=== PATIENT | female | born 1945 | race Caucasian/White ===

== ENCOUNTER 2020-09-10 21:55 | Inpatient (IN) | payer OTHER ==
[~2020-09-10] VITALS: Ht 170.2 cm; Wt 82.8 kg
[2020-09-10 21:59] VITALS: BP 158/79
[2020-09-10] MEDS ORDERED: LISINOPRIL10 MG PO (22:03)
[2020-09-11] VITALS (53 sets, daily range): BP systolic 77–153; BP diastolic 35–98
[2020-09-11 01:33] LABS: BE -0.5 mmol/L (-2 to +3); PCO2 45.3 mmHg (35.0-45.0); pH 7.364 (7.340-7.450)
[2020-09-11 01:35] LABS: PO2 128.4 mmHg (75.0-100.0)
[2020-09-11 01:50] LABS: HEMOGLOBIN 13.7 gm/dL (12.0-15.0); MCH 29.2 pg (26.0-34.0); MCHC 32.6 g/dL (28.0-37.0); MCV 89.5 fL (80.0-100.0); MPV 7.8 fl. (7.2-11.1); NUCLEATED RBCS 0 /100WBC; PLATELET COUNT* 310 thou/uL (150-400); RBC 4.69 mil/uL (4.20-5.00); WBC 10.6 thou/uL (4.0-11.0)
[2020-09-11 01:51] LABS: CREATININE 0.8 mg/dL (0.6-1.3); MAGNESIUM 2.5 mg/dL (1.8-2.4); POTASSIUM 3.6 mmol/L (3.5-5.1)
[2020-09-11 02:48] LABS: ABSOLUTE LYMPHOCYTES 1.4 thou/uL (0.8-5.3); ABSOLUTE MONOCYTES 0.1 thou/uL (0.0-1.2); ABSOLUTE NEUTROPHILS 9.1 thou/uL (1.6-8.1)
[2020-09-11 02:49] LABS: PLATELET ESTIMATE ADEQUATE
--- NOTE | 2020-09-11 12:16 | EKG ---
[place] [address] ELECTROCARDIOGRAM REPORT Name: DAWSONBRENNA Devi Room: [address] ADM IN M.R.#: [id number] Admission: 09/11/20 Attend Phys: Orlando Francis, Discharge: Date of : 47 Date of Service: 09/10/20 2329 Report #: [id number] THIS REPORT FOR: //name// [facility] ED Test Date: 2020-09-10 Test Time: 23:29:25 Pat Name: BRENNA OSMAN Department: Room: [address] Gender: F Junior Administrative Assistant: CCD : 1945 Requested By: Richa Smith Order Number: [id number] Liam MD: Yordan Waller Measurements Intervals [place] Rate: 100 P: 32 AK: 179 QRS: 27 QRSD: 98 T: -10 QT: 387 QTc: 500 Interpretive Statements Sinus tachycardia Borderline T abnormalities, inferior leads Borderline prolonged QT interval Baseline wander in lead(s) V6 No previous ECG available for comparison Electronically Signed On 09-11-2020 12:16:33 CDT by Yordan Waller [email or web address] <ELECTRONICALLY SIGNED> By: Yordan Waller MD, FAC 09/11/20 1216 2329 2329 Yordan Waller MD, [facility] /EPI
[2020-09-12] VITALS (26 sets, daily range): BP systolic 100–158; BP diastolic 74–109
[2020-09-12 03:11] LABS: ABSOLUTE LYMPHOCYTES 0.9 thou/uL (0.8-5.3); ABSOLUTE MONOCYTES 0.3 thou/uL (0.0-1.2); ABSOLUTE NEUTROPHILS 11.2 thou/uL (1.6-8.1); BASOPHILS 0.2 %; HEMATOCRIT 41.3 % (37.0-47.0); HEMOGLOBIN 13.4 gm/dL (12.0-15.0); LYMPHOCYTES 7.6 %; MCH 28.8 pg (26.0-34.0); MCHC 32.5 g/dL (28.0-37.0); MCV 88.7 fL (80.0-100.0); MONOCYTES 2.1 %; MPV 8.2 fl. (7.2-11.1); NUCLEATED RBCS 0 /100WBC; PLATELET COUNT* 273 thou/uL (150-400); POLYS 90.1 %; RBC 4.66 mil/uL (4.20-5.00); RDW-CV 14.2 % (10.5-14.5); WBC 12.4 thou/uL (4.0-11.0)
[2020-09-12 03:23] LABS: ALBUMIN 3.2 g/dL (3.4-5.0); CALCIUM 8.7 mg/dL (8.5-10.1); CREATININE 0.7 mg/dL (0.6-1.3); MAGNESIUM 2.1 mg/dL (1.8-2.4); PHOSPHORUS* 3.1 mg/dL (2.5-4.9); POTASSIUM 4.1 mmol/L (3.5-5.1); TOTAL BILIRUBIN 0.2 mg/dL (<0.1-1.0); TOTAL PROTEIN 6.9 g/dL (6.4-8.2)
[2020-09-12 13:00] LABS: BE -3.8 mmol/L (-2 to +3); PCO2 39.4 mmHg (35.0-45.0); pH 7.353 (7.340-7.450)
[2020-09-12 13:02] LABS: PO2 131.1 mmHg (75.0-100.0)
--- NOTE | 2020-09-12 14:32 | 2DMMODE ---
[place] [address] 2 D/M-MODE ECHOCARDIOGRAM Name: BRENNA OSMAN Room: [address] IN .R.#: [id number] Admission: 09/11/20 Attend Phys: Orlando Francis, Discharge: Date of : 47 Date of Service: 09/12/20 1431 Report #: [id number] THIS REPORT FOR: cc: Tyree Saldana MD, Tuongvan T. MD Holkins, John M. MD [facility] ~ APPROVED REPORT Study performed: 09/11/2020 14:55:09 EXAM: Comprehensive 2D, Doppler, and color-flow Echocardiogram Patient Location: In-Patient Room #: 003 Status: routine BSA: 1.88 HR: 83 bpm BP: 99/54 mmHg Rhythm: NSR Other Information Study Quality: Good Indications Dyspnea Echo Enhancing Agent Indication: Rule out Shunt Agent(s) / Amount(s) Used: Agitated Saline 10 cc 2D Dimensions IVSd: 10.26 (7-11mm) LVOT Diam: 19.42 (18-24mm) LVDd: 39.53 mm PWd: 8.59 (7-11mm) Ascending Ao: 27.44 (22-36mm) LVDs: 19.23 (25-40mm) Aortic Root: 30.93 mm Volumes Left Atrial Volume (Systole) LA ESV Index: 18.70 mL/m2 Aortic Valve AoV Peak Nain.: 1.52 m/s AO Peak Gr.: 9.19 mmHg LVOT Max P.07 mmHg AO Mean Gr.: 4.98 mmHg LVOT [place]74 [place] [address] 2 D/M-MODE ECHOCARDIOGRAM Name: DAWSONBRENNA Marito Room: [address] IN .R.#: [id number] Admission: 09/11/20 Attend Phys: Orlando Francis, Discharge: Date of : 47 Date of Service: 09/12/20 1431 Report #: [id number] LVOT Max V: 1.23 m/s AO V2 VTI: 30.52 cm LVOT Mean V: 0.75 m/s SANDOR (VTI): 2.45 cm2 LVOT V1 VTI: 25.28 cm Mitral Valve E/A Ratio: 0.64 MV Decel. Time: 227.91 ms MV E Max Nain.: 0.66 m/s MV PHT: 66.09 ms MVA (PHT): 3.33 cm2 TDI E/Lateral E': 7.33 E/Medial E': 8.25 Medial E' Nain.: 0.08 m/s Lateral E' Nain.: 0.09 m/s Pulmonary Valve PV Peak Nain.: 0.95 m/s PV Peak Gr.: 3.61 mmHg Left Ventricle The left ventricle is normal size. There is normal LV segmental wall motion. There is normal left ventricular wall thickness. Left ventricular systolic function is normal. The left ventricular ejection fraction is within the normal range. LVEF is 65-70%. Grade I - abnormal relaxation pattern. Right Ventricle The right ventricle is normal size. The right ventricular systolic function is normal. Atria The left atrium size is normal. The interatrial septum is intact with no evidence for an atrial septal defect. The right atrium size is normal. Aortic Valve The aortic valve is normal in structure. No aortic regurgitation is present. There is no aortic valvular stenosis. Mitral Valve The mitral valve is normal in structure. Trace mitral regurgitation. No evidence of mitral valve stenosis. Tricuspid Valve The tricuspid valve is normal in structure. [place] [address] 2 D/M-MODE ECHOCARDIOGRAM Name: BRENNA OSMAN Room: [address] IN [facility]#: [id number] Admission: 09/11/20 Attend Phys: Orlando Francis, Discharge: Date of : 47 Date of Service: 09/12/20 1431 Report #: [id number] Pulmonic Valve The pulmonary valve is normal in structure. There is no pulmonic valvular regurgitation. Great Vessels The aortic root is normal in size. IVC is normal in size and collapses >50% with inspiration. Pericardium There is no pericardial effusion. <Conclusion> The left ventricle is normal size. There is normal left ventricular wall thickness. Left ventricular systolic function is normal. The left ventricular ejection fraction is within the normal range. LVEF is 65-70%. Grade I - abnormal relaxation pattern. The right ventricle is normal size. The left atrium size is normal. The aortic valve is normal in structure. The mitral valve is normal in structure. The tricuspid valve is normal in structure. IVC is normal in size and collapses >50% with inspiration. There is no pericardial effusion. There is normal LV segmental wall motion. The interatrial septum is intact with no evidence for an atrial septal defect. <ELECTRONICALLY SIGNED> By: Yordan Waller MD, FACC 09/12/20 1431 1431 1431 Yordan Waller MD, FACC /INF
[2020-09-12] MEDS ORDERED: NORVASC5 MG (19:13)
[2020-09-12] MEDS ORDERED: OMEPRAZOLE 20 M20 M1 PO (19:15)
[2020-09-12] MEDS ORDERED: CELEXA 10 MG TA10 M1 (19:16)
[2020-09-12] MEDS ORDERED: DULOXETINE HCL60 MG (19:18)
[2020-09-12] MEDS ORDERED: ALENDRONATE SOD70 MG ×2 (19:24→19:25)
[2020-09-13] VITALS (69 sets, daily range): BP systolic 121–156; BP diastolic 68–102
[2020-09-13 03:19] LABS: ABSOLUTE LYMPHOCYTES 0.9 thou/uL (0.8-5.3); ABSOLUTE MONOCYTES 0.5 thou/uL (0.0-1.2); ABSOLUTE NEUTROPHILS 11.8 thou/uL (1.6-8.1); BASOPHILS 0.2 %; HEMATOCRIT 43.1 % (37.0-47.0); HEMOGLOBIN 13.9 gm/dL (12.0-15.0); LYMPHOCYTES 6.5 %; MCH 28.9 pg (26.0-34.0); MCHC 32.4 g/dL (28.0-37.0); MCV 89.2 fL (80.0-100.0); MONOCYTES 3.8 %; MPV 8.2 fl. (7.2-11.1); NUCLEATED RBCS 0 /100WBC; PLATELET COUNT* 284 thou/uL (150-400); POLYS 89.5 %; RBC 4.83 mil/uL (4.20-5.00); RDW-CV 14.2 % (10.5-14.5); WBC 13.2 thou/uL (4.0-11.0)
[2020-09-13 04:44] LABS: CALCIUM 7.4 mg/dL (8.5-10.1); CREATININE 0.5 mg/dL (0.6-1.3); MAGNESIUM 2.2 mg/dL (1.8-2.4); PHOSPHORUS* 2.3 mg/dL (2.5-4.9); TOTAL BILIRUBIN 0.3 mg/dL (<0.1-1.0); TOTAL PROTEIN 6.1 g/dL (6.4-8.2)
[2020-09-14] VITALS (70 sets, daily range): BP systolic 76–147; BP diastolic 41–100
[2020-09-14 04:00] LABS: HEMATOCRIT 43.5 % (37.0-47.0); HEMOGLOBIN 14.3 gm/dL (12.0-15.0); MCH 28.8 pg (26.0-34.0); MCHC 32.7 g/dL (28.0-37.0); MCV 87.9 fL (80.0-100.0); MPV 8.5 fl. (7.2-11.1); NUCLEATED RBCS 0 /100WBC; PLATELET COUNT* 275 thou/uL (150-400); RBC 4.96 mil/uL (4.20-5.00); WBC 10.4 thou/uL (4.0-11.0)
[2020-09-14 04:31] LABS: ALBUMIN 2.7 g/dL (3.4-5.0); CALCIUM 7.5 mg/dL (8.5-10.1); CREATININE 0.6 mg/dL (0.6-1.3); MAGNESIUM 2.2 mg/dL (1.8-2.4); POTASSIUM 3.5 mmol/L (3.5-5.1); TOTAL BILIRUBIN 0.3 mg/dL (<0.1-1.0); TOTAL PROTEIN 5.4 g/dL (6.4-8.2)
[2020-09-14 04:55] LABS: APTT 28.9 Seconds (25.0-31.3)
[2020-09-14 06:55] LABS: ABSOLUTE LYMPHOCYTES 0.5 thou/uL (0.8-5.3); ABSOLUTE MONOCYTES 0.3 thou/uL (0.0-1.2); ABSOLUTE NEUTROPHILS 9.6 thou/uL (1.6-8.1); PLATELET ESTIMATE ADEQUATE
[2020-09-14 08:31] LABS: BE 1.7 mmol/L (-2 to +3); PCO2 34.9 mmHg (35.0-45.0); PO2 67.8 mmHg (75.0-100.0)
[2020-09-15] VITALS (46 sets, daily range): BP systolic 88–161; BP diastolic 53–97
[2020-09-15 02:26] LABS: HEMATOCRIT 41.5 % (37.0-47.0); HEMOGLOBIN 13.4 gm/dL (12.0-15.0); MCH 28.8 pg (26.0-34.0); MCHC 32.2 g/dL (28.0-37.0); MCV 89.4 fL (80.0-100.0); MPV 8.2 fl. (7.2-11.1); RBC 4.64 mil/uL (4.20-5.00); RDW-CV 13.9 % (10.5-14.5); WBC 10.5 thou/uL (4.0-11.0)
[2020-09-15 02:42] LABS: ALBUMIN 2.5 g/dL (3.4-5.0); CALCIUM 7.5 mg/dL (8.5-10.1); CREATININE 0.8 mg/dL (0.6-1.3); MAGNESIUM 2.6 mg/dL (1.8-2.4); POTASSIUM 3.6 mmol/L (3.5-5.1); TOTAL BILIRUBIN 0.4 mg/dL (<0.1-1.0); TOTAL PROTEIN 5.6 g/dL (6.4-8.2)
--- NOTE | 2020-09-15 10:32 | EKG ---
[place] [address] ELECTROCARDIOGRAM REPORT Name: DAWSONBRENNA Room: [address] ADM IN M.R.#: [id number] Admission: 09/11/20 Attend Phys: Orlando Francis, Discharge: Date of : 47 Date of Service: 09/12/20 0844 Report #: [id number] THIS REPORT FOR: //name// [facility] Test Date: 2020-09-12 Test Time: 08:44:59 Pat Name: BRENNA OSMAN Department: Room: [address] Gender: F Multifocal Button Generator: Jd Avina : 1945 Requested By: Mili Cuevas Order Number: [id number] Reading MD: Daniel Mckinney Measurements Intervals [place] Rate: 101 P: [place]: QRS: 44 QRSD: 89 T: 14 QT: 368 QTc: 477 Interpretive Statements Atrial fibrillation Consider anterior infarct Baseline wander in lead(s) V2 Compared to ECG 09/10/2020 23:29:25 Myocardial infarct finding now present Sinus tachycardia no longer present Electronically Signed On 09-15-2020 10:32:27 CDT by Daniel Mckinnye [email or web address] <ELECTRONICALLY SIGNED> By: Daniel Mckinney MD, FAC 09/15/20 1032 0844 0844 Daniel Mckinney MD, FAC /EPI
--- NOTE | 2020-09-15 10:50 | EKG ---
[place] [address] ELECTROCARDIOGRAM REPORT Name: BRENNA OSMAN Room: [address] ADM IN .R.#: [id number] Admission: 09/11/20 Attend Phys: Orlando Francis, Discharge: Date of : 47 Date of Service: 09/13/20 0144 Report #: [id number] THIS REPORT FOR: //name// [facility] Test Date: 2020-09-13 Test Time: 01:44:50 Pat Name: BRENNA OSMAN Department: Room: [address] Gender: F Microbiology Supervisor: MS : 1945 Requested By: Mili Cuevas Order Number: [id number] Liam MD: Daniel Mciknney Measurements Intervals [place] Rate: 84 P: [place]: QRS: 48 QRSD: 89 T: 17 QT: 394 QTc: 466 Interpretive Statements Atrial fibrillation Compared to ECG 09/12/2020 08:44:59 no change Electronically Signed On 09-15-2020 10:50:22 CDT by Daniel Mckinney [email or web address] <ELECTRONICALLY SIGNED> By: Daniel Mckinney MD, [facility] 09/15/20 1050 0144 0144 Daniel Mckinney MD, [facility] /EPI
--- NOTE | 2020-09-15 11:11 | EKG ---
[place] [address] ELECTROCARDIOGRAM REPORT Name: BRENNA OSMAN Room: [address] ADM IN M.R.#: [id number] Admission: 09/11/20 Attend Phys: Orlando Francis, Discharge: Date of : 47 Date of Service: 09/14/20 0952 Report #: [id number] THIS REPORT FOR: //name// [facility] Test Date: 2020-09-14 Test Time: 09:52:58 Pat Name: BRENNA OSMAN Department: Room: [address] Gender: F Scrap Piler: [id number] : 1945 Requested By: Mili Cuevas Order Number: [id number] Reading MD: Daniel Mckinney Measurements Intervals [place] Rate: 106 P: [place]: QRS: 70 QRSD: 87 T: 7 QT: 346 QTc: 460 Interpretive Statements Atrial fibrillation Low voltage, precordial leads Compared to ECG 09/13/2020 01:44:50 Low QRS voltage now present Electronically Signed On 09-15-2020 11:11:11 CDT by Daniel Mckinney [email or web address] <ELECTRONICALLY SIGNED> By: Daniel Mckinney MD, FACC 09/15/20 1111 0952 0952 Daniel Mckinney MD, [facility] /EPI
--- NOTE | 2020-09-15 11:26 | EKG ---
[place] [address] ELECTROCARDIOGRAM REPORT Name: BRENNA OSMAN Room: [address] ADM IN .R.#: [id number] Admission: 09/11/20 Attend Phys: Orlando Francis, Discharge: Date of : 47 Date of Service: 09/15/20 0840 Report #: [id number] THIS REPORT FOR: //name// [facility] Test Date: 2020-09-15 Test Time: 08:40:38 Pat Name: BRENNA OSMAN Department: Room: [address] Gender: F Nurse Charge Rn: : 1945 Requested By: Mili Cuevas Order Number: [id number] Liam MD: Daniel Mckinney Measurements Intervals [place] Rate: 120 P: [place]: QRS: 54 QRSD: 83 T: 35 QT: 344 QTc: 486 Interpretive Statements Atrial fibrillation Borderline prolonged QT interval Compared to ECG 09/13/2020 01:44:50 No significant changes Electronically Signed On 09-15-2020 11:26:05 CDT by Daniel Mckinney [email or web address] <ELECTRONICALLY SIGNED> By: Daniel Mckinney MD, [facility] 09/15/20 1126 0840 0840 Daniel Mckinney MD, [facility] /EPI
[2020-09-15 18:17] LABS: CALCIUM 6.5 mg/dL (8.5-10.1); CREATININE 0.7 mg/dL (0.6-1.3); POTASSIUM 3.3 mmol/L (3.5-5.1)
[2020-09-16] VITALS (33 sets, daily range): BP systolic 130–167; BP diastolic 77–103
[2020-09-16 03:54] LABS: ABSOLUTE LYMPHOCYTES 0.7 thou/uL (0.8-5.3); ABSOLUTE MONOCYTES 0.6 thou/uL (0.0-1.2); ABSOLUTE NEUTROPHILS 9.2 thou/uL (1.6-8.1); BASOPHILS 0.1 %; HEMATOCRIT 43.6 % (37.0-47.0); HEMOGLOBIN 14.4 gm/dL (12.0-15.0); LYMPHOCYTES 6.9 %; MCH 29.2 pg (26.0-34.0); MCHC 33.1 g/dL (28.0-37.0); MCV 88.1 fL (80.0-100.0); MONOCYTES 5.4 %; MPV 8.3 fl. (7.2-11.1); NUCLEATED RBCS 0 /100WBC; PLATELET COUNT* 236 thou/uL (150-400); POLYS 87.6 %; RBC 4.95 mil/uL (4.20-5.00); RDW-CV 14.1 % (10.5-14.5); WBC 10.5 thou/uL (4.0-11.0)
[2020-09-16 04:21] LABS: ALBUMIN 2.6 g/dL (3.4-5.0); CALCIUM 7.6 mg/dL (8.5-10.1); CREATININE 0.7 mg/dL (0.6-1.3); MAGNESIUM 2.5 mg/dL (1.8-2.4); POTASSIUM 3.8 mmol/L (3.5-5.1); TOTAL BILIRUBIN 0.4 mg/dL (<0.1-1.0)
[2020-09-16 11:05] LABS: BE 0.9 mmol/L (-2 to +3); PCO2 33.1 mmHg (35.0-45.0); PO2 64.7 mmHg (75.0-100.0); pH 7.473 (7.340-7.450)
[2020-09-17] VITALS (13 sets, daily range): BP systolic 105–161; BP diastolic 68–99
[2020-09-17 03:05] LABS: HEMATOCRIT 44.1 % (37.0-47.0); HEMOGLOBIN 14.5 gm/dL (12.0-15.0); MCH 28.9 pg (26.0-34.0); MCHC 32.9 g/dL (28.0-37.0); MPV 8.5 fl. (7.2-11.1); NUCLEATED RBCS 0 /100WBC; PLATELET COUNT* 305 thou/uL (150-400); RBC 5.01 mil/uL (4.20-5.00); RDW-CV 13.8 % (10.5-14.5); WBC 13.7 thou/uL (4.0-11.0)
[2020-09-17 03:43] LABS: ALBUMIN 2.7 g/dL (3.4-5.0); CALCIUM 7.7 mg/dL (8.5-10.1); CREATININE 0.7 mg/dL (0.6-1.3); MAGNESIUM 2.5 mg/dL (1.8-2.4); POTASSIUM 3.6 mmol/L (3.5-5.1); TOTAL BILIRUBIN 0.6 mg/dL (<0.1-1.0)
[2020-09-17 05:02] LABS: ABSOLUTE LYMPHOCYTES 0.7 thou/uL (0.8-5.3); ABSOLUTE MONOCYTES 0.5 thou/uL (0.0-1.2); ABSOLUTE NEUTROPHILS 12.5 thou/uL (1.6-8.1); PLATELET ESTIMATE ADEQUATE
[2020-09-18 03:58] LABS: CALCIUM 8.3 mg/dL (8.5-10.1); CREATININE 0.7 mg/dL (0.6-1.3); MAGNESIUM 2.6 mg/dL (1.8-2.4); POTASSIUM 3.7 mmol/L (3.5-5.1)
[2020-09-18 04:05] LABS: ABSOLUTE LYMPHOCYTES 1.1 thou/uL (0.8-5.3); ABSOLUTE MONOCYTES 0.8 thou/uL (0.0-1.2); ABSOLUTE NEUTROPHILS 10.9 thou/uL (1.6-8.1); BASOPHILS 0.1 %; HEMATOCRIT 44.7 % (37.0-47.0); HEMOGLOBIN 14.6 gm/dL (12.0-15.0); LYMPHOCYTES 8.3 %; MCH 29.2 pg (26.0-34.0); MCHC 32.6 g/dL (28.0-37.0); MCV 89.3 fL (80.0-100.0); MONOCYTES 6.6 %; MPV 8.8 fl. (7.2-11.1); NUCLEATED RBCS 0 /100WBC; PLATELET COUNT* 276 thou/uL (150-400); WBC 12.8 thou/uL (4.0-11.0)
[2020-09-18 08:00] VITALS: BP 118/97
[2020-09-18 12:00] VITALS: BP 145/84
[2020-09-18 16:00] VITALS: BP 133/97
[2020-09-18 20:13] VITALS: BP 146/102
[2020-09-18 22:46] VITALS: BP 141/87
[2020-09-18 23:51] VITALS: BP 143/95
[2020-09-19] VITALS (8 sets, daily range): BP systolic 115–155; BP diastolic 41–104
[2020-09-19] MEDS ORDERED: PROTONIX40 M2 PO (10:33)
[2020-09-19] MEDS ORDERED: ELIQUIS5 MG PO (10:33)
[2020-09-19] MEDS ORDERED: DILTIAZEM 24HR180 M1 PO (10:33)
[2020-09-19] MEDS ORDERED: LOPRESSOR100 M1 PO (10:33)
[2020-09-19 15:34] LABS: HEMATOCRIT 44.6 % (37.0-47.0); HEMOGLOBIN 14.5 gm/dL (12.0-15.0); MCH 28.7 pg (26.0-34.0); MCHC 32.4 g/dL (28.0-37.0); MCV 88.6 fL (80.0-100.0); MPV 8.6 fl. (7.2-11.1); NUCLEATED RBCS 0 /100WBC; PLATELET COUNT* 254 thou/uL (150-400); RBC 5.03 mil/uL (4.20-5.00); WBC 16.9 thou/uL (4.0-11.0)
[2020-09-19 15:55] LABS: CALCIUM 8.5 mg/dL (8.5-10.1); CREATININE 0.8 mg/dL (0.6-1.3); MAGNESIUM 2.4 mg/dL (1.8-2.4); POTASSIUM 3.8 mmol/L (3.5-5.1); TOTAL BILIRUBIN 0.6 mg/dL (<0.1-1.0); TOTAL PROTEIN 6.2 g/dL (6.4-8.2)
[2020-09-19 16:44] LABS: ABSOLUTE MONOCYTES 0.8 thou/uL (0.0-1.2); ATYPICAL LYMPHS 3 %
[2020-09-19 16:45] LABS: PLATELET ESTIMATE ADEQUATE
[2020-09-20 00:23] VITALS: BP 128/77
[2020-09-20 04:19] VITALS: BP 128/77
[2020-09-20 05:11] LABS: HEMATOCRIT 42.9 % (37.0-47.0); HEMOGLOBIN 13.9 gm/dL (12.0-15.0); MCH 28.9 pg (26.0-34.0); MCHC 32.4 g/dL (28.0-37.0); MCV 89.2 fL (80.0-100.0); MPV 9.1 fl. (7.2-11.1); RBC 4.81 mil/uL (4.20-5.00); RDW-CV 13.9 % (10.5-14.5); WBC 15.5 thou/uL (4.0-11.0)
[2020-09-20 05:33] LABS: CALCIUM 8.7 mg/dL (8.5-10.1); CREATININE 0.8 mg/dL (0.6-1.3); POTASSIUM 3.6 mmol/L (3.5-5.1)
[2020-09-20 08:58] VITALS: BP 128/74
[2020-09-20 11:38] VITALS: BP 122/74
[2020-09-20 16:06] VITALS: BP 122/67
[2020-09-20 20:00] VITALS: BP 139/75
[2020-09-21] VITALS (7 sets, daily range): BP systolic 112–132; BP diastolic 69–74
[2020-09-21 05:11] LABS: HEMATOCRIT 39.9 % (37.0-47.0); MCH 28.9 pg (26.0-34.0); MCHC 32.5 g/dL (28.0-37.0); MCV 89.1 fL (80.0-100.0); MPV 9.2 fl. (7.2-11.1); RBC 4.48 mil/uL (4.20-5.00); RDW-CV 13.9 % (10.5-14.5)
[2020-09-21 05:15] LABS: CALCIUM 8.6 mg/dL (8.5-10.1); CREATININE 0.7 mg/dL (0.6-1.3); POTASSIUM 3.6 mmol/L (3.5-5.1)
--- NOTE | 2020-09-22 09:50 | EKG ---
[place] [address] ELECTROCARDIOGRAM REPORT Name: DAWSONBRENNA Room: [address] DIS IN M.R.#: [id number] Admission: 09/11/20 Attend Phys: Orlando Francis, Discharge: 09/21/20 Date of : 47 Date of Service: 09/21/20 1027 Report #: [id number] THIS REPORT FOR: //name// [facility] Test Date: 2020-09-21 Test Time: 10:27:39 Pat Name: BRENNA OSMAN Department: Room: [address] Gender: F Regulatory Leader: STEPHY : 1945 Requested By: Min Quispe Order Number: [id number] Reading MD: Daniel Mckinney Measurements Intervals [place] Rate: 84 P: 73 [place]: 168 QRS: 27 QRSD: 87 T: -7 QT: 377 QTc: 446 Interpretive Statements Sinus arrhythmia Probable left atrial enlargement Low voltage, precordial leads Borderline T abnormalities, anterior leads Compared to ECG 09/15/2020 08:40:38 Low QRS voltage now present T-wave abnormality now present Atrial fibrillation no longer present Electronically Signed On 09-22-2020 9:50:06 CDT by Daniel Mckinney [email or web address] <ELECTRONICALLY SIGNED> By: Daniel Mckinney MD, [facility] 09/22/20 0950 1027 1027 Daniel Mckinney MD, [facility] /EPI
--- NOTE | 2020-09-23 07:35 | CON ---
[address] [address] CONSULTATION Name: BRENNA OSMAN Room: [address] IN M.R.#: [id number] Admission: 09/11/20 Attend Phys: Orlando Francis MD Discharge: 09/21/20 Date of : 47 Report #: [id number] THIS REPORT FOR: cc: Tyree Saldana MD, Tuongvan T. MD Pervez, Adeel MD ~ DOC #: [id number] Tylor Mackey MD DATE OF CONSULTATION: 09/11/2020 CONSULT REQUESTED BY: Dr. Francis. INDICATION FOR CONSULTATION: Ventilator management. HISTORY OF PRESENT ILLNESS: A 75-year-old female who has a history strongly consistent with COPD. There is a previous chest x-ray report also available, which shows hyperinflation. The patient is an active smoker. The patient, however, has not been diagnosed with a cardiac or respiratory disease in the past. She does have a history of hypertension and does take lisinopril. The patient developed tongue swelling leading to respiratory distress. There is no obvious etiology known. Note the lisinopril can cause angioedema; however, she has been taking this for a long period of time. The patient is not known to have ingested any new food. She does eat nuts at times, however, her family says that this was no different from what she does usually, this is not known if the patient in fact had any nuts yesterday or not. Upon arrival, the patient had to be endotracheally intubated due to tongue swelling and respiratory distress. The patient's chest x-ray also shows an infiltrate in the right middle lobe, which is consistent with aspiration. However, I do not have any definite history of aspiration or vomiting. The patient currently is on 40% FiO2, 5 of PEEP. She is sedated with propofol and fentanyl and therefore is unable to provide further history or review of systems. The patient is reported to have had an ultrasound of the abdomen yesterday for abdominal pain. There is no recent known history of IV dye administration. PAST MEDICAL HISTORY: Hypertension. Also, there is a history and previous chest x-ray from 1998 consistent with COPD the diagnosis is however, not on her records. HOME MEDICATIONS: Reported to be on lisinopril at home. SOCIAL HISTORY: An extensive smoker, 1-2 packs a day, still smokes, smoking for several decades. No known history of heavy alcohol use [place] [address] CONSULTATION Name: BRENNA OSMAN Room: [address]#: [id number] Admission: 09/11/20 Attend Phys: Orlando Francis MD Discharge: 09/21/20 Date of : 47 Report #: [id number] ALLERGIES: SHE HAS HAD AN ALLERGY OR ADVERSE REACTION TO IODINE DYE. FAMILY HISTORY: There is no pertinent family history known at this time. PHYSICAL EXAMINATION: General: The patient is sedated with propofol and fentanyl. Vital Signs: She is on 30% FiO2 with 5 of PEEP. Tidal volume is 500, AC rate set at 14. She was not overbreathing the ventilator at the time of my evaluation. Body mass index is 26.6, pulse 81, blood pressure 134/72, saturating 98%. She is afebrile with a temperature of 36.3. HEENT: Normocephalic and atraumatic. Pupils are equal and reactive. There is an endotracheal tube in good position. Neck: Does not show raised JVP asymmetry, mass or lymph nodes. Chest: Symmetrical expansion on inspection and palpation. On auscultation, chest is clear. Heart: Regular. There is no murmur. Abdomen: Soft and nontender. Extremities: Lower extremities show no edema, no calf tenderness. Skin: Dry and intact. Neurologic: Moves all extremities bilaterally equally and spontaneously with no focal deficit identified. LABORATORY DATA: The patient's chest x-ray from last night is reviewed. There is an infiltrate in the right middle lobe. I do not have a previous chest x-ray to compare. There may be some borderline cardiomegaly as well. There is a nodular radiopaque density in the right middle lobe region. The patient's lab work is in [facility] reviewed. Arterial blood gas in [facility] reviewed. DIAGNOSTIC DATA: X-ray abdomen in [facility] reviewed. ASSESSMENT AND PLAN: 1. Acute respiratory distress secondary to upper airway edema/tongue swelling requiring endotracheal intubation. I would be very careful in extubating the patient will leave her sedated overnight. We will treat her with high-dose Solu-Medrol. We will also give her some Pepcid. We will make sure that we do a leak test and verify that she will be able to maintain her upper airway prior to considering weaning trial and extubation tomorrow. Meanwhile, I agree with the current ventilator settings and we will continue with propofol and fentanyl. We will check propofol related labs tomorrow morning. The patient currently has limited peripheral access. Hopefully, we will be able to get a better peripheral access and a wide central access. 2. Chronic obstructive pulmonary disease. History is consistent with this not previously diagnosed. I am giving her Solu-Medrol, regardless for tongue swelling and upper airway edema. We will also give her nebulized [facility] [address] [place] [address] CONSULTATION Name: BRENNA OSMAN Room: [address] IN M.R.#: [id number] Admission: 09/11/20 Attend Phys: Orlando Francis MD Discharge: 09/21/20 Date of : 47 Report #: [id number] bronchodilators. 3. Pulmonary infiltrate. With an infiltrate in the right middle lobe, there is no definite history available for aspiration; however, this is consistent with aspiration. I will therefore go ahead and give her ceftriaxone. We will do sputum culture and nasal swab for MRSA as well. Overall, the likelihood of an anaerobic infection is low. I do not feel strongly either way regarding giving her anaerobic coverage as well or not. 4. Abdominal pain. She is reported to have had an ultrasound yesterday for abdominal pain. There is no known IV dye administration. I would defer a followup of this to the primary service. There is some distended loops of bowel consistent with mild ileus and some stool noted in the x-ray of the abdomen. 5. Gastrointestinal prophylaxis. Pepcid as above. 6. Deep venous thrombosis prophylaxis, on Lovenox. 7. Mild hyperglycemia, likely worsened with steroids and therefore, I went ahead and ordered an insulin sliding scale. The patient is critically ill at this time. Total time spent providing critical care to this patient today is 39 minutes. Tylor Mackey MD AP/SAB <ELECTRONICALLY SIGNED> By: Tylor Mackey MD 09/23/20 0735 1030 2314Adrew Mackey MD /nt
== END 2020-09-21 15:47 | disposition home or self-care (01) | DRG 207 ==
LOC: M.ERS 21:55 → M.TBA-ER 09-11 01:07 → M.ICU 09-11 01:07 → M.2W 09-19 16:53
PROVIDERS: Emergency Medicine; Family Medicine; Internal Medicine; Internal Medicine Critical Care Medicine; ADMIT Internal Medicine; ATTEND Internal Medicine
DX: J96.01 Acute respiratory failure with hypoxia (principal); J69.0 Pneumonitis due to inhalation of food and vomit; G92 Toxic encephalopathy; B37.0 Candidal stomatitis; T78.3XXA Angioneurotic edema, initial encounter; I10 Essential (primary) hypertension; F17.210 Nicotine dependence, cigarettes, uncomplicated; J44.9 Chronic obstructive pulmonary disease, unspecified; R73.9 Hyperglycemia, unspecified; I48.0 Paroxysmal atrial fibrillation; I95.9 Hypotension, unspecified; T50.995A Adverse effect of other drugs, medicaments and biological substances, initial encounter; Z20.822 Contact with and (suspected) exposure to COVID-19; Z79.899 Other long term (current) drug therapy; Y92.89 Other specified places as the place of occurrence of the external cause

== ENCOUNTER → 2020-12-09 | Outpatient (CLI) | payer OTHER ==
[~2020-12-09] MED LIST: ALENDRONATE SOD70 MG; CELEXA 10 MG TA10 M1; DILTIAZEM 24HR180 M1 PO; DULOXETINE HCL60 MG; ELIQUIS5 MG PO; HYDROCHLOROTH12.5 M1 PO; LISINOPRIL10 MG PO; LOPRESSOR100 M1 PO; NORVASC5 MG; OMEPRAZOLE 20 M20 M1 PO; PROTONIX40 M2 PO
--- NOTE | 2020-12-09 16:09 | CARDNUC ---
[place] [address] CARDIAC NUCLEAR IMAGING REPORT Name: BRENNA OSMAN Room: [facility]#: [id number] Admission: 12/09/20 Attend Phys: Min Quispe, Discharge: Date of : 47 Date of Service: 12/09/20 1609 Report #: [id number] THIS REPORT FOR: cc: Viola Rao Stefany RNP Liston, Michael J. MD [facility] ~ APPROVED REPORT Study performed: 12/09/2020 11:14:53 Exam: Nuclear Stress Test Indication: Chest pain, palpitations, AFib, dizziness. Patient Location: Out-Patient Stress Tech: Sweta Serna Stress Nurse: Danelle Parsons R.N. Ht: 5 ft 7 in Wt: 176 lbs BSA: 1.91 m2 BMI: 27.56 Medical History Medical History: Chest pain, angioedema, dizziness, palpitations, ARF, emphysema, GERD, COPD, PAF, venous insufficiency, ASD, aspiration pneumonia RLL, HTN, Current smoker, FHX CAD. Medications: Apixaban, HCTZ, Metoprolol Tartrate. Allergies: UVALDO-Inhibitors, Iodine. Cardiac Risk Factors: Age, Current Smoker, FHX of CAD, HTN, ASD, PAF, palpitations. Previous Cardiac Procedures: None Pretest Chest Pain Characteristics: No chest pain Exercise History: Indeterminate Physical Disabilities: PAF. Meds Held (24 hrs): Metoprolol, HCTZ. Stress Test Details Stress Test: Pharmacologic stress testing performed using 0.4 mg of regadenoson per 5 mL given IV over 10 seconds. Reason for pharmacologic stress test: PAF.. HR Resting HR: 82 bpm Max Heart Rate (APMHR): 146 bpm Max HR Achieved: 115 bpm Target HR (85% APMHR): 124 bpm % of APMHR: 78 Recovery HR: 103 [place] [address] CARDIAC NUCLEAR IMAGING REPORT Name: BRENNA OSMAN Room: [facility]#: [id number] Admission: 12/09/20 Attend Phys: Min Quispe, Discharge: Date of : 47 Date of Service: 12/09/20 1609 Report #: [id number] Resting BP: 159/87 mmHg Max BP: 172/80 mmHg ECG Resting ECG: Sinus Rhythm Stress ECG: Sinus Tachycardia ST Change: None Arrhythmia: APC's Recovery ECG: Sinus Rhythm Recovery ST Change: None Recovery Arrhythmia: APC's Clinical Reason for Termination: Completed protocol Stress Symptoms: Warmth/flushed. Exercise duration: 00 min 00 sec Exercise capacity: 1.00 METs The patient tolerated Lexiscan infusion without significant cardiac symptoms. Nurse Comments A 75 year old female tolerated a sitting Lexiscan Nuclear Stress Test. Patient was stable and stated she felt good when escorted to Nuclear Medicine for imaging. Stress ECG Conclusion The baseline twelve-lead EKG shows sinus rhythm without significant ST segment or T wave abnormality. There were occasional premature atrial contractions noted. EKGs obtained during and post Lexiscan infusion show sinus rhythm and sinus tachycardia with no significant ST segment changes when compared to baseline. There were no significant stress-induced arrhythmias. NM EXAM: Myocardial Perfusion REST/STRESS Imaging Protocol: Rest Tc-99m/Stress Tc-99m 1 day Resting Data Rest SPECT myocardial perfusion imaging was performed in supine position 30 minutes following the intravenous injection of 10.1 mCi of Tc-99m Sestamibi. Time of rest injection: 09:50 The images were gated to evaluate regional wall motion and calculate left ventricular ejection fraction. Administration Route: IV Administration Site: [place] [address] CARDIAC NUCLEAR IMAGING REPORT Name: BRENNA OSMAN Room: [facility]#: [id number] Admission: 12/09/20 Attend Phys: Min Quispe, Discharge: Date of : 47 Date of Service: 12/09/20 1609 Report #: [id number] Pharmacologic Stress Pharmacologic stress test was performed by injecting Regadenoson 0.4 mg IV push followed by the intravenous injection of 29.8 mCi of Tc-99m Sestamibi. Time of stress injection: 11:40 Administration Route: IV Administration Site: Left AC Heart Rate at time of stress injection: 115 bpm. Gated Stress SPECT was performed 40 minutes after stress injection. The images were gated to evaluate regional wall motion and calculate left ventricular ejection fraction. Prone imaging was performed. Study Quality Study: Good Artifact: Mild Breast artifact Study Data At rest, the left ventricular ejection fraction was 76%.. Post stress, the left ventricular ejection was 82%.. TID = 1.01. Perfusion Perfusion images obtained in the supine position at rest and post Lexiscan stress show mild photopenia in the anterior wall that resolves completely with post-rest prone imaging consistent with breast attenuation artifact. No other significant fixed or reversible defects are identified. Wall Motion Normal left ventricular wall motion. Nuclear Conclusion ECG Findings: negative for ischemia Clinical Findings: negative for ischemia Nuclear Findings: negative for ischemia Exercise Capacity: not assessed Left Ventricular Function: normal Risk Study: low Perfusion study show no defect to suggest infarct or ischemia. Left ventricular systolic function appears normal on gated studies. This is a low risk study. <Conclusion> [place] [address] CARDIAC NUCLEAR IMAGING REPORT Name: BRENNA OSMAN [facility] [id number] Admission: 12/09/20 Attend Phys: Min Quispe, Discharge: Date of : 47 Date of Service: 12/09/20 1609 Report #: [id number] The baseline twelve-lead EKG shows sinus rhythm without significant ST segment or T wave abnormality. There were occasional premature atrial contractions noted. EKGs obtained during and post Lexiscan infusion show sinus rhythm and sinus tachycardia with no significant ST segment changes when compared to baseline. There were no significant stress-induced arrhythmias. <ELECTRONICALLY SIGNED> By: Willian Sutton MD, FACC 12/09/20 1609 1609 1609 Willian Sutton MD, FACC /INF
== END ==
LOC: M.NUC 11-07 09:42
PROVIDERS: ATTEND Internal Medicine
DX: R00.0 Tachycardia, unspecified (principal); I48.91 Unspecified atrial fibrillation; R07.9 Chest pain, unspecified; R00.2 Palpitations; R42 Dizziness and giddiness

== ENCOUNTER → 2021-06-16 | Outpatient (CLI) | payer OTHER | LOC: M.CT 08:30 | PROVIDERS: ATTEND Nurse Practitioner Family | DX: Z13.6 Encounter for screening for cardiovascular disorders (principal); I25.10 Atherosclerotic heart disease of native coronary artery without angina pectoris ==